=== PATIENT | female | born 1965 | race Caucasian/White ===

== ENCOUNTER 2017-09-06 08:10 | Emergency (ER) | payer OTHER ==
[2017-09-06] MEDS ORDERED: HYDROmorphone 1 MG/ML Syringe IVPUSH ONE ×2 (08:26→09:39)
[2017-09-06] MEDS ORDERED: Ondansetron 4 MG/2 ML SDV IVPUSH ONE (08:30)
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
[2017-09-06] MEDS ORDERED: Iopamidol 612 MG/ML 100 ML Bottle IVPUSH ONE (08:46)
[2017-09-06 09:00] LABS: CHLORIDE,CL 107 mmol/L (98-107); SODIUM,NA 144 mmol/L (136-145)
[2017-09-06] MEDS ORDERED: Take Home: Cyclobenzaprine 10 MG Tab, 4 Tab Pack PO ONE (09:10)
[2017-09-06] MEDS ORDERED: Take Home: Azithromycin 250 MG, 2 Tab Pack PO ONE (10:32)
== END 2017-09-06 10:05 | disposition home or self-care (01) ==
LOC: VM.ED 08:10
DX: S01.01XA Laceration without foreign body of scalp, initial encounter (principal); S29.012A Strain of muscle and tendon of back wall of thorax, initial encounter; Z88.0 Allergy status to penicillin; V89.2XXA Person injured in unspecified motor-vehicle accident, traffic, initial encounter
CPT/HCPCS: 12001; 36415; 70450; 71260; 72125; 74177; 80053; 85025; 85610; 96374; 96375; 96376; 99285; A9270; J1170; J2405; Q9967; 12031